=== PATIENT | female | born 1980 | race Caucasian/White ===

== ENCOUNTER 2020-01-26 17:31 | Emergency (ER) | payer MEDICAID ==
[~2020-01-26] VITALS: Ht 160 cm; Wt 82.6 kg
[2020-01-26 17:31] VITALS: BP_SYST 135
[2020-01-26] MEDS ORDERED: KETOROLAC TROMETHAMINE 30 MG VIAL IVP ONE (18:15)
[2020-01-26 18:39] VITALS: BP_SYST 128
== END 2020-01-26 18:39 | disposition home or self-care (01) ==
LOC: SED 17:31
DX: M94.0 Chondrocostal junction syndrome [Tietze] (principal)
CPT/HCPCS: 93005; 96374; 99283; J1885